=== PATIENT | female | born 1990 | race Hispanic/Latino ===

== ENCOUNTER 2020-01-14 06:40 | Day surgery (SDC) | payer OTHER ==
[~2020-01-14] VITALS: Ht 162.6 cm; Wt 93.9 kg
[~2020-01-14 06:40] MED LIST: ASPIR 8181 MG PO; DOXYCYCLINE HY100 MG PO; GLUCOPHAGE500 MG PO; KEFLEX500 MG PO; LABETALOL HCL100 MG PO; MICROGESTIN FE1 EAC1 PO; PRENATAL MULTI1 EAC3 PO; ULTRAM50 MG PO
[2020-01-14] MEDS ORDERED: HYDROCODON-ACE1 EA10 PO (08:06)
--- NOTE | 2020-01-14 09:21 | NUR ---
01/14/20 0921 Yue,Jennifer 0805 PT ARRIVED TO PACU ON RA AND TALKING TO RN. VSS. 0817 PT SITTING IN HIGH FOLWERS AND SIPPING WATER. PT DENIES NAUSEA AND REPORTS PAIN 02/08 0823 ORAL PAIN MEDICATION GIVEN PER EMAR. 0855 PT GETTING DRESSED AND RIDE CALLED. PT RPEORTS PAIN IS 7/10 AND "HURTING." REPAIRER [employer] CALLED AND NEW ORDER RECEIVED. 0856 IV PRABHAKAR MEDICATION GIVEN PER EMAR. 0905 PLAN TO RETURN PT TO DS TO MONITOR. REPORT TO DS RN. PT REPORTS PAIN IS BETTER /10. VSS.
--- NOTE | 2020-01-16 08:20 | OR ---
[facility] [address] [place], [place] [address] Signed DATE OF OPERATION: 01/14/2020 SURGEON: Valentin Joya MD PREOPERATIVE DIAGNOSIS: Right carpal tunnel syndrome. POSTOPERATIVE DIAGNOSIS: Right carpal tunnel syndrome. PROCEDURE PERFORMED: Right carpal tunnel release. ANESTHESIA: [place] block. TOURNIQUET TIME: 17 minutes. DRIVER SERVICE TECHNICIAN: None. BRIEF HISTORY: Aletha is a 29-year-old female with symptoms consistent with carpal tunnel and nerve conduction studies consistent with severe carpal tunnel. Risks and benefits of operative treatment discussed with her and she elected to proceed. DESCRIPTION OF PROCEDURE: Once consent was obtained, she was taken to the operating room after adequate anesthesia. She was placed on operating room table and all downside pressure points were well padded. The right arm was prepped and draped in a standard sterile fashion. The J[place] block was a little slow setting up, so we injected incision and carpal tunnel using 0.25% plain Marcaine and a 1.5 cm incision was made in the distal wrist crease. This was carried through skin and subcutaneous tissue. Palmaris longus was identified, retracted and protected. The transverse carpal ligament was then dissected free of overlying soft tissue under loupe magnification and was released proximally a 1.5 cm and distally to its distal extent. This was palpated using the [place] and again under direct loupe magnification, it was found to be completely released with no nerve damage. The wound was copiously irrigated with normal saline, closed with 3-0 nylon and dressed with Electronically Signed By: VALENTIN JOYA MD 01/16/20 0820 PATIENT NAME: ALETHA VEGA OPERATIVE REPORT DATE OF : 88 REPORT #: [id number] PHYSICIAN: VALENTIN JOYA MD PCP: MISSY CASTELLANOS MD REPORT IS CONFIDENTIAL AND NOT TO BE RELEASED WITHOUT AUTHORIZATION [facility] [address] [facility] [place] [place] [address] Signed bacitracin, Adaptic, 4 x 8s, and gauze. She tolerated that well. Valentin Joya MD BA/MODL /[id number] Copies: ~ Electronically Signed By: VALENTIN JOYA MD 01/16/20 0820 PATIENT NAME: ALETHA VEGA OPERATIVE REPORT DATE OF : 88 REPORT #: [id number] PHYSICIAN: VALENTIN JOYA MD PCP: MISSY CASTELLANOS MD REPORT IS CONFIDENTIAL AND NOT TO BE RELEASED WITHOUT AUTHORIZATION
== END 2020-01-14 09:12 | disposition home or self-care (01) ==
LOC: OPS 06:40 → DS 06:40
PROVIDERS: Specialist
PROC: 01N50ZZ Release Median Nerve, Open Approach (ICD-10-PCS; principal; 2020-01-14 08:15)
DX: G56.03 Carpal tunnel syndrome, bilateral upper limbs (principal); Z79.899 Other long term (current) drug therapy; Z79.82 Long term (current) use of aspirin; Z79.84 Long term (current) use of oral hypoglycemic drugs
CPT/HCPCS: J0690; J1885; J2250; J2704; J7121

== ENCOUNTER 2020-02-25 05:40 | Day surgery (SDC) | payer OTHER ==
[~2020-02-25] VITALS: Ht 162.6 cm; Wt 93.4 kg
[~2020-02-25 05:40] MED LIST changes: +HYDROCODON-ACE1 EA10 PO
[2020-02-25] MEDS ORDERED: HYDROCODON-ACE1 EA10 PO (07:25)
--- NOTE | 2020-02-25 07:35 | NUR ---
02/25/20 0734 Sybil Antonio 0725- PT TO PACU IN SF POSITION EYES CLOSED. RESPONDS TO VERBAL STIMULI BUT QUICKLY FALLS BACK TO SLEEP WITH ORAL AIRWAY IN PLACE. BREATHING EASY AND UNLABORED. SPO2 >95% ON 12 L O2 VIA MASK. 0730- PT CONTINUES TO SLEEP WITH EYES CLOSED. BREATHING EASY AND UNLABORED. SPO2 >95% ON 6 L O2 VIA MASK. 0734- PT OPENS EYES AND FOLLOWS COMMANDS. ORAL AIRWAY REMOVED AND O2 TITRATED DOWN TO RA. BREATHING EASY AND UNLABORED. SPO2 >90%. DENIES PAIN AND NAUSEA.
--- NOTE | 2020-02-25 08:41 | NUR ---
PATIENT TO BACK TO ROOM FROM PACU. VERBAL REPORT FROM CHET BROTHERS. REPORTS PATIENT READY TO GO, JUST NEEDS TO WAKE UP A LITTLE MORE. PATIENT APPEARS TO BE AWAKE ON AND OFF, AND CONVERSING WITH . PROVIDED ICE WATER. PATIENT STATES " I AM READY TO GO HOME NOW". WILL LET PATIENT WAKE UP A LITTLE MORE, BEFORE GETTING DRESSED AND PROVIDING DISCHARGE EDUCATION REVIEW AGAIN.
--- NOTE | 2020-02-25 08:47 | NUR ---
PT TAKEN TO OR-FAMILY IN RM. RELAXED, SEEMED COMFORTABLE AND GAVE ENCOURAGEMENT
--- NOTE | 2020-02-25 09:12 | OR ---
[facility] [address] [place], [place] [address] Signed DATE OF OPERATION: 02/25/2020 SURGEON: Valentin Joya MD PREOPERATIVE DIAGNOSIS: Left carpal tunnel syndrome. POSTOPERATIVE DIAGNOSIS: Left carpal tunnel syndrome. PROCEDURE PERFORMED: Left carpal tunnel release. VASC TECH: None. ANESTHESIA: [place] block. TOURNIQUET TIME: 20 minutes. BRIEF HISTORY: Aletha is a 30-year-old female with bilateral carpal tunnel. She had undergone successful right release and wished to proceed with left. Risks and benefits of operative treatment discussed with her and she elected to proceed. DESCRIPTION OF PROCEDURE: Once consent was obtained, she was taken to the operating room. After adequate anesthesia, she was placed on the operating cart and hand table was brought in. The arm was then prepped and draped in a standard sterile fashion. A 1.5 cm incision was made in the distal wrist crease, carried through the skin and subcutaneous tissue. Palmaris longus was identified, retracted and protected. The transverse carpal ligament was identified under loupe magnification and was dissected free of overlying soft tissue distally and proximally. It was then transected approximately a cm and distally under direct loupe magnification, it was released to the distal extent. This was palpated using a [place] and found to be completely released. The wound was copiously irrigated with antibiotic solution. The wound was infiltrated with 8 mL of 0.25% plain Marcaine. The wound was closed with 3-0 nylon and dressed with bacitracin, Adaptic, 4 x 8s, and gauze. She tolerated the procedure well. All sponge, needle, and instrument counts Electronically Signed By: VALENTIN JOYA MD 02/25/20 0912 PATIENT NAME: ALETHA VEGA OPERATIVE REPORT DATE OF : 88 REPORT #: [id number] PHYSICIAN: VALENTIN JOYA MD PCP: MISSY CASTELLANOS MD REPORT IS CONFIDENTIAL AND NOT TO BE RELEASED WITHOUT AUTHORIZATION [address] [place], [place] [address] Signed were correct. Valentin Joya MD BA/MODL /[id number] Copies: ~ Electronically Signed By: VALENTIN JOYA MD 02/25/20 0912 PATIENT NAME: ALETHA VEGA OPERATIVE REPORT DATE OF : 88 REPORT #: [id number] PHYSICIAN: VALENTIN JOYA MD PCP: MISSY CASTELLANOS MD REPORT IS CONFIDENTIAL AND NOT TO BE RELEASED WITHOUT AUTHORIZATION
== END 2020-02-25 09:15 | disposition home or self-care (01) ==
LOC: DS 05:40
PROVIDERS: Specialist
PROC: 01N50ZZ Release Median Nerve, Open Approach (ICD-10-PCS; principal; 2020-02-25 06:45)
DX: G56.02 Carpal tunnel syndrome, left upper limb (principal); I10 Essential (primary) hypertension; E66.01 Morbid (severe) obesity due to excess calories; Z68.35 Body mass index [BMI] 35.0-35.9, adult; Z98.890 Other specified postprocedural states; Z79.899 Other long term (current) drug therapy; Z79.82 Long term (current) use of aspirin; Z79.84 Long term (current) use of oral hypoglycemic drugs
CPT/HCPCS: J0690; J1100; J1885; J2250; J2405; J2704; J2765; J3010; J7121

== ENCOUNTER 2023-05-13 22:30 | Inpatient (IN) | payer OTHER ==
[~2023-05-13 22:30] MED LIST changes: +ESTRADIOL2 MG PO; +FOLIC ACID1 MG PO; +OMEGA 3 1,0001 EACH PO; +RELION NOV100 UNIT/1 SUB-Q; +[UNRECOGNIZED DRUG - OTHER] PO
[2023-05-14 00:04] LABS: CREATININE, RANDOM URINE 24.05 mg/dL (NOT ESTABLISHED); PROTEIN/CREATININE RATIO 0.49 mg/mg (0.010-0.107)
[2023-05-14 00:14] LABS: HEMATOCRIT 34.4 % (35.0-50.0); HEMOGLOBIN 11.6 g/dL (12.0-18.0); MCH 30.5 (27-36); MCHC 33.6 g/dl (30-36); MCV 90.6 fl (81-99); RBC 3.8 M/ul (4.3-5.7); RDW 14.2 (10.5-15.0)
[2023-05-14 00:28] LABS: CREATININE, SERUM 0.75 mg/dL (0.55-1.02)
[2023-05-14 03:28] LABS: INFLUENZA B NAA NEGATIVE (NEGATIVE); RESPIRATORY SYNCYTIAL VIR NAA NEGATIVE (NEGATIVE)
[2023-05-14 03:59] VITALS: BP 176/105
[2023-05-14 04:47] LABS: ABO O; ANTIBODY SCREEN NEGATIVE; RH POSITIVE
== END 2023-05-14 14:14 | disposition short-term general hospital (02) | DRG 832 ==
LOC: FBCO 22:30 → FBC 22:31 → FBCO 05-14 04:38 → FBC 05-14 04:38
PROVIDERS: ADMIT Obstetrics & Gynecology; ATTEND Obstetrics & Gynecology
DX: O11.3 Pre-existing hypertension with pre-eclampsia, third trimester (principal); O24.113 Pre-existing type 2 diabetes mellitus, in pregnancy, third trimester; O10.913 Unspecified pre-existing hypertension complicating pregnancy, third trimester; Z3A.34 34 weeks gestation of pregnancy; Z79.4 Long term (current) use of insulin; Z79.899 Other long term (current) drug therapy; Z20.822 Contact with and (suspected) exposure to COVID-19
CPT/HCPCS: 36415; 59025; 82565; 82570; 84156; 84450; 84520; 84550; 85027; 86850; 86900; 86901; 87502; 87653; C9803; G0463; J0360; J3475; J7121; U0002

== ENCOUNTER 2024-07-15 06:00 | Day surgery (SDC) | payer OTHER ==
[~2024-07-15] VITALS: Ht 162.6 cm; Wt 95.5 kg
[~2024-07-15 06:00] MED LIST changes: +LACTATED RINGER'S 1,000 ML IV SCH
[2024-07-15 06:15] VITALS: BP 131/88
[2024-07-15] MEDS ORDERED: HUMULIN N100 UNIT/1 SUB-Q (06:30)
[2024-07-15 06:33] LABS: HEMATOCRIT 39.1 % (35.0-50.0); HEMOGLOBIN 13.5 g/dL (12.0-18.0); MCH 30.2 (27-36); MCHC 34.4 g/dl (30-36); MCV 87.7 fl (81-99); RBC 4.46 M/ul (4.3-5.7); RDW 13.8 (10.5-15.0)
--- NOTE | 2024-07-15 06:44 | NUR ---
Heart Tones: 151
[2024-07-15] MEDS ORDERED: LIDOCAINE HCL 1% 5 ML SDV INJ ONE (07:00)
[2024-07-15] MEDS ORDERED: IBLOOD GLUCOSE TEST STRIP 1 EA TEST VI PRN (07:00)
[2024-07-15] MEDS ORDERED: FAMOTIDINE 20 MG/ 2 ML VIAL IV SCH (07:00)
[2024-07-15] MEDS ORDERED: propofoL 200 MG/20 ML VIAL ONE (07:01)
[2024-07-15] MEDS ORDERED: LIDOCAINE HCL 2% 5 ML SDV ONE (07:01)
--- NOTE | 2024-07-15 07:20 | NUR ---
PT GONE FOR PROCEDURE. PROVIDED PRAYER.
[2024-07-15] MEDS ORDERED: NALOXONE HCL 0.4 MG SYR IV PRN (07:45)
[2024-07-15] MEDS ORDERED: MAGNESIUM HYDROXIDE/AL HYDROX 30 ML CUP PO PRN (07:45)
[2024-07-15] MEDS ORDERED: PROCHLORPERAZINE EDISYLATE 10 MG/2 ML VIAL IV PRN (07:45)
[2024-07-15] MEDS ORDERED: FAMOTIDINE 20 MG TAB PO PRN (07:45)
[2024-07-15] MEDS ORDERED: METOCLOPRAMIDE HCL 10 MG/2 ML SDV IV PRN (07:45)
[2024-07-15] MEDS ORDERED: LACTATED RINGER'S 1,000 ML IV SCH (07:45)
[2024-07-15] MEDS ORDERED: ondansetron HCL 4 MG/2 ML VIAL IV PRN (07:45)
[2024-07-15] MEDS ORDERED: HYDROCODONE/ACETA 5/325 TAB PO PRN (07:45)
[2024-07-15] MEDS ORDERED: ondansetron HCL 4 MG TAB PO PRN (07:45)
--- NOTE | 2024-07-15 08:05 | NUR ---
07/15/24 0805 ACE KAY 0730 PT ARRIVED TO PACU VIA STREACHER. PT BREATHING EQUAL AND UNLABROED, PT HAS NATURAL AIRWAY. PT TALKING PT ROLLS INTO PACU. PT HAS 6L OF OYXGEN VIA MASK. PT REPORTS NO PAIN OR NAUSEA AT THIS TIME. ALL MONITORS ATTACHED. REPORT TAKEN FROM TRISTIN TURNING SANDER OPERATOR. PT SPINAL LEVEL AT T5. 0753 HEART TONES 140. BLOOD GLUCOSE 79. PT REPORTING NO PAIN OR NAUSEA. 0802 PT REMOVED FROM OXYGEN DUE TO PT OXYGEN SAT AT 100% ON 6L. PT OXYGEN SAT STAYING ABOVE 96% ON RA.
[2024-07-15 08:24] VITALS: BP 129/85
--- NOTE | 2024-07-15 08:30 | NUR ---
Patient returns to room 4 from PACU via bed. Patient is awake and talking upon arrival. Report taken from ZEV Hoover. Patient had a spinal and is at about abdomen level. patient unable to life legs. Patient denies any nausea or pain at this time. water provided to patient. Patient was medicated with Indomethacin at this time per Dr. Verdugo's request. heart tones assessed and heart rate is 152. Maternal vital signs obtained and WDL. Patient denies any needs at this time. bed is in lowest position and call light within reach.
[2024-07-15] MEDS ORDERED: INDOMETHACIN 50 MG CAP PO ONE (09:00)
--- NOTE | 2024-07-15 09:25 | NUR ---
Hourly rounding on patient. Patient is denying any nausea. reports some crampy pain, but nothing significant. Spinal is almost resolved, she feels sharpness to the ankle and above. vital signs obtained. She has drank water. Will provide crackers. Patient states that she needs to urinate. bedside commode brought to room. she was able to void 600ml. patient was allowed to get dressed at this time with the assistance of her .
[2024-07-15 09:27] VITALS: BP 155/92
--- NOTE | 2024-07-15 09:50 | NUR ---
patient is dressed. spinal has resolved and she states that she feels well and steady on her feet. heart tones assessed and heart rate is 150. Discharge instructions reviewed in detail with patient and her . She had the question of if she has weight restrictions. There was no note in any discharge information by Dr. Verdugo about weight restrictions, but I let her know that I was not certain. I advised to not fish bait picker her 14 month old daughter to be safe and follow up with Dr. Verdugo about her question on Friday at her appointment. IV removed from left hand. Patient discharged via wheelchair where her is to take her home.
--- NOTE | 2024-07-16 16:27 | OR ---
[facility] [address] [place], [place] [address] Signed DATE OF OPERATION: 07/15/2024 SURGEON: Carol Verdugo MD PREOPERATIVE DIAGNOSIS: Sixteen week , incompetent cervix. POSTOPERATIVE DIAGNOSIS: Sixteen week , incompetent cervix. PROCEDURE: Gastelum cerclage. ANESTHESIA: Spinal with IV sedation. ESTIMATED BLOOD LOSS: Minimal. DRAINS: None. INDICATIONS AND FINDINGS: The patient is a 34-year-old female 3, para 0-2-0-1, who was admitted at 16 weeks for cerclage. She has had a prior loss at 21 weeks. She did have a cerclage with her last , though she was delivered early because of severe preeclampsia. At the time of surgery, her cervix was closed. It did appear to be slightly shortened. PROCEDURE IN DETAIL: The patient was prepped and draped in the dorsal lithotomy position. A weighted speculum was placed and the anterior lip of the cervix was visualized and grasped with a ring forcep. A 5 mm Mersilene band was then placed in a pursestring manner starting at 12 o'clock and was taken circumferentially around the cervix and tied at approximately 1 o'clock. Care was to keep as much length as possible. Appropriate depth of the suture placement was also done. After the suture was tied, the ends of the Mersilene band the cervix to be closed. Following placement of the suture, the ends of the Mersilene were sutured together with 0 silk. The instruments removed. There was minimal bleeding. The patient was taken to the recovery room in good condition. All sponge and needle counts were correct. Electronically Signed By: CAROL VERDUGO MD 07/16/24 1627 PATIENT NAME: ALETHA KAHN OPERATIVE REPORT DATE OF : 88 REPORT #: [id number] PHYSICIAN: CAROL VERDUGO MD PCP: NO PRIMARY CARE PHYSICIAN REPORT IS CONFIDENTIAL AND NOT TO BE RELEASED WITHOUT AUTHORIZATION [address] [address] Signed Carol Verdugo MD PJW/MODL /[id number] Copies: ~ Electronically Signed By: CAROL VERDUGO MD 07/16/24 1627 PATIENT NAME: ALETHA KAHN OPERATIVE REPORT DATE OF : 88 REPORT #: [id number] PHYSICIAN: CAROL VERDUGO MD PCP: NO PRIMARY CARE PHYSICIAN REPORT IS CONFIDENTIAL AND NOT TO BE RELEASED WITHOUT AUTHORIZATION
== END 2024-07-15 09:55 | disposition home or self-care (01) ==
LOC: DS 06:00
PROVIDERS: ATTEND Obstetrics & Gynecology
PROC: 0UVC7ZZ Restriction of Cervix, Via Natural or Artificial Opening (ICD-10-PCS; principal; 2024-07-15 07:30)
DX: O34.32 Maternal care for cervical incompetence, second trimester (principal); O10.912 Unspecified pre-existing hypertension complicating pregnancy, second trimester; O99.212 Obesity complicating pregnancy, second trimester; O24.312 Unspecified pre-existing diabetes mellitus in pregnancy, second trimester; Z3A.16 16 weeks gestation of pregnancy; Z79.82 Long term (current) use of aspirin; Z79.4 Long term (current) use of insulin; Z79.84 Long term (current) use of oral hypoglycemic drugs; Z79.899 Other long term (current) drug therapy
CPT/HCPCS: 36415; 85027; J2003; J2704; J7121

== ENCOUNTER 2024-08-19 09:17 | Emergency (ER) | payer OTHER ==
[~2024-08-19] VITALS: Ht 162.6 cm; Wt 97.6 kg
[~2024-08-19 09:17] MED LIST changes: +HUMULIN N100 UNIT/1 SUB-Q; -LACTATED RINGER'S 1,000 ML IV SCH
[2024-08-19] MEDS ORDERED: MAGNESIUM SULFATE 100 ML IV ONE (09:32)
[2024-08-19 09:41] LABS: EOSINOPHILS 1.3 % (0-6); HEMATOCRIT 38.5 % (35.0-50.0); HEMOGLOBIN 13.3 g/dL (12.0-18.0); LYMPHOCYTES 24.8 % (24-44); MCH 30.6 (27-36); MCHC 34.4 g/dl (30-36); MCV 88.8 fl (81-99); MONOCYTES 6.9 % (0-12); PLATELET COUNT 235 K/uL (140-440); RBC 4.34 M/ul (4.3-5.7); RDW 14.1 (10.5-15.0)
[2024-08-19] MEDS ORDERED: LACTATED RINGER'S 1,000 ML IV SCH (09:45)
[2024-08-19] MEDS ORDERED: MAGNESIUM SULFATE 1 GM/2 ML VIAL IV ONE (09:45)
[2024-08-19] MEDS ORDERED: CALCIUM GLUCONATE 1,000 MG/10 ML VIAL IV PRN (09:45)
[2024-08-19] MEDS ORDERED: MAGNESIUM SULFATE 500 ML IV SCH (09:45)
[2024-08-19] MEDS ORDERED: hydrALAZINE HCL 20 MG/ML VIAL IV ONE (09:45)
[2024-08-19 09:49] LABS: PROTIME 12.8 Sec (11.2-14.2)
[2024-08-19 09:51] LABS: PARTIAL THROMBOPLASTIN TIME 31.2 Sec (22.9-41.3)
[2024-08-19 09:53] LABS: ALBUMIN 3.1 g/dL (3.4-5.0); ALBUMIN/GLOBULIN RATIO 0.79 (1.1-2.4); ANION GAP 13.8 (7-21); BILIRUBIN, DIRECT 0.1 mg/dL (0.0-0.2); BILIRUBIN, INDIRECT 0.2 (0.1-0.7); BILIRUBIN, TOTAL 0.3 ng/dL (0.2-1.0); BUN/CREATININE RATIO 12.85 (6.0-28.6); CALCIUM 8.7 mg/dL (8.5-10.1); CREATININE, SERUM 0.7 mg/dL (0.55-1.02); MAGNESIUM 1.6 mg/dL (1.8-2.4); POTASSIUM 3.8 mmol/L (3.5-5.1)
[2024-08-19 09:54] LABS: BILIRUBIN, URINE NEGATIVE (negative); BLOOD/HGB, URINE NEGATIVE (Negative); KETONE, URINE NEGATIVE (Negative); LEUK ESTERASE, URINE NEGATIVE (negative); NITRITE, URINE NEGATIVE (negative); PH, URINE 6.5 (5-7)
[2024-08-19 10:10] LABS: CREATININE, RANDOM URINE 57.78 mg/dL (NOT ESTABLISHED); PROTEIN/CREATININE RATIO 0.19 mg/mg (0.010-0.107)
[2024-08-19 11:35] VITALS: BP 109/78
== END 2024-08-19 11:35 | disposition other institution, planned readmission (95) ==
LOC: ED 09:17
PROVIDERS: Emergency Medicine
DX: O14.92 Unspecified pre-eclampsia, second trimester (principal); O24.912 Unspecified diabetes mellitus in pregnancy, second trimester; O16.2 Unspecified maternal hypertension, second trimester; Z3A.21 21 weeks gestation of pregnancy; Z96.0 Presence of urogenital implants; Z79.84 Long term (current) use of oral hypoglycemic drugs; Z79.82 Long term (current) use of aspirin; Z79.899 Other long term (current) drug therapy
CPT/HCPCS: 36415; 80053; 81001; 81003; 82247; 82248; 82570; 83615; 83735; 84156; 84550; 85025; 85384; 85610; 85730; 96374; 96375; 99284-25; J0360; J3475

== ENCOUNTER 2024-08-19 11:46 | Observation (INO) | payer OTHER ==
[2024-08-19] MEDS ORDERED: ACETAMINOPHEN 500 MG TAB PO ONE (13:00)
[2024-08-19 14:28] VITALS: BP 144/91
[2024-08-19] MEDS ORDERED: LABETALOL HCL 100 MG TAB PO ONE (14:30)
== END 2024-08-19 16:51 | disposition home or self-care (01) ==
LOC: FBCO 11:46 → FBC 11:53
PROVIDERS: ADMIT Advanced Practice Midwife; ATTEND Advanced Practice Midwife
DX: O99.891 Other specified diseases and conditions complicating pregnancy (principal); R51.9 Headache, unspecified; O16.2 Unspecified maternal hypertension, second trimester; O24.912 Unspecified diabetes mellitus in pregnancy, second trimester; O34.32 Maternal care for cervical incompetence, second trimester; Z3A.22 22 weeks gestation of pregnancy; Z79.4 Long term (current) use of insulin; Z79.84 Long term (current) use of oral hypoglycemic drugs; Z79.82 Long term (current) use of aspirin
CPT/HCPCS: 84550; A9270

== ENCOUNTER 2024-10-10 22:12 | Observation (INO) | payer OTHER ==
[~2024-10-10] VITALS: Ht 162.6 cm; Wt 97.1 kg
[2024-10-10 22:43] LABS: CREATININE, RANDOM URINE 116.18 mg/dL (NOT ESTABLISHED); PROTEIN/CREATININE RATIO 0.12 mg/mg (0.010-0.107)
[2024-10-10 22:58] LABS: HEMATOCRIT 35.9 % (35.0-50.0); HEMOGLOBIN 12.5 g/dL (12.0-18.0); MCH 31.2 (27-36); MCHC 34.9 g/dl (30-36); MCV 89.6 fl (81-99); RBC 4.01 M/ul (4.3-5.7); RDW 14.2 (10.5-15.0)
[2024-10-10] MEDS ORDERED: LABETALOL HCL 100 MG/20 ML MDV ONE (22:59)
[2024-10-10 23:13] LABS: ALBUMIN 2.9 g/dL (3.4-5.0); ALBUMIN/GLOBULIN RATIO 0.73 (1.1-2.4); ANION GAP 14.7 (7-21); BILIRUBIN, TOTAL 0.3 ng/dL (0.2-1.0); BUN/CREATININE RATIO 12.14 (6.0-28.6); CALCIUM 9.5 mg/dL (8.5-10.1); CREATININE, SERUM 1.07 mg/dL (0.55-1.02); POTASSIUM 3.7 mmol/L (3.5-5.1); PROTEIN, TOTAL 6.9 g/dL (6.4-8.2)
[2024-10-10] MEDS ORDERED: LACTATED RINGER'S 1,000 ML IV SCH (23:15)
[2024-10-10] MEDS ORDERED: hydrALAZINE HCL 20 MG/ML VIAL IV PRN (23:15)
[2024-10-10] MEDS ORDERED: CALCIUM GLUCONATE 1,000 MG/10 ML VIAL IV PRN (23:15)
[2024-10-10] MEDS ORDERED: LABETALOL HCL 100 MG/20 ML MDV IV PRN ×3 (23:15)
[2024-10-10] MEDS ORDERED: MAGNESIUM SULFATE 500 ML IV SCH (23:15)
[2024-10-10 23:32] LABS: ABO O; ANTIBODY SCREEN NEGATIVE; RH POSITIVE
[2024-10-11 06:15] LABS: ALBUMIN 2.6 g/dL (3.4-5.0); ALBUMIN/GLOBULIN RATIO 0.72 (1.1-2.4); ANION GAP 12.5 (7-21); BILIRUBIN, TOTAL 0.2 ng/dL (0.2-1.0); BUN/CREATININE RATIO 13.84 (6.0-28.6); CALCIUM 7.8 mg/dL (8.5-10.1); CREATININE, SERUM 0.65 mg/dL (0.55-1.02); MAGNESIUM 3.9 mg/dL (1.8-2.4); POTASSIUM 3.5 mmol/L (3.5-5.1); PROTEIN, TOTAL 6.2 g/dL (6.4-8.2)
[2024-10-11] MEDS ORDERED: metFORMIN HCL 500 MG TAB PO SCH (08:00)
[2024-10-11] MEDS ORDERED: ASPIRIN 81 MG CHEW PO SCH (08:00)
[2024-10-11] MEDS ORDERED: INSULIN NPH HUMAN ISOPHANE 100 UNIT/ML ML SUB-Q SCH ×2 (08:00→21:00)
[2024-10-11] MEDS ORDERED: LABETALOL HCL 200 MG TAB PO SCH (09:00)
[2024-10-12 08:49] VITALS: BP 145/83
== END 2024-10-12 10:20 | disposition home or self-care (01) ==
LOC: FBCO 22:12 → FBC 22:13
PROVIDERS: ADMIT Obstetrics & Gynecology; ATTEND Obstetrics & Gynecology
DX: O10.913 Unspecified pre-existing hypertension complicating pregnancy, third trimester (principal); I16.9 Hypertensive crisis, unspecified; O24.113 Pre-existing type 2 diabetes mellitus, in pregnancy, third trimester; O99.213 Obesity complicating pregnancy, third trimester; Z3A.31 31 weeks gestation of pregnancy; Z79.4 Long term (current) use of insulin; Z79.899 Other long term (current) drug therapy
CPT/HCPCS: 36415; 76815; 80053; 82565; 82570; 83615; 83735; 84156; 84550; 85027; 86850; 86900; 86901; A9270; G0378; J1815; J3475; J7121

== ENCOUNTER 2025-08-31 05:50 | Day surgery (SDC) | payer OTHER ==
[~2025-08-31] VITALS: Ht 162.6 cm; Wt 99.0 kg
[~2025-08-31 05:50] MED LIST changes: +LACTATED RINGER'S 1,000 ML IV SCH
[2025-08-31 06:05] VITALS: BP 148/89
[2025-08-31 06:36] LABS: BASOPHILS 0.5 % (0.1-1.2); EOSINOPHILS 0.9 % (0.7-5.8); LYMPHOCYTES 30.4 % (19.3-51.7); MCH 29.6 PG (25.6-32.2); MCHC 34.2 g/dL (32.2-35.5); MCV 86.6 fL (79.4-94.8); MONOCYTES 6.8 % (4.7-12.5); NEUTROPHILS 61.2 % (34.0-71.1); RBC 4.39 M/uL (3.93-5.22)
[2025-08-31] MEDS ORDERED: LIDOCAINE HCL 1% 5 ML SDV INJ ONE (07:00)
[2025-08-31] MEDS ORDERED: IBLOOD GLUCOSE TEST STRIP 1 EA TEST VI PRN (07:00)
[2025-08-31] MEDS ORDERED: LIDOCAINE HCL 2% 5 ML SDV ONE ×2 (07:12→07:13)
[2025-08-31 07:33] LABS: ABO O; ANTIBODY SCREEN NEGATIVE; RH POSITIVE
--- NOTE | 2025-08-31 08:23 | NUR ---
08/31/25 0823 Vanessa Uriarte 0818-PATIENT ARRIVED TO PACU ON RA 95% RR EVEN REACTIVE TO VERBAL STIMULI OPENING EYES DENIES PAIN OR NAUSEA. SR HR 80'S IVF INFUSING. DR SMITH AT BEDSIDE DOING ULTRASOUND. CLIF PAD IN PLACE NO DRAINAGE NOTED.
[2025-08-31] MEDS ORDERED: MAGNESIUM HYDROXIDE/AL HYDROX 30 ML CUP PO PRN (08:30)
[2025-08-31] MEDS ORDERED: FAMOTIDINE 20 MG/ 2 ML VIAL IV PRN (08:30)
[2025-08-31] MEDS ORDERED: NALOXONE HCL 0.4 MG SYR IV PRN (08:30)
[2025-08-31] MEDS ORDERED: PROCHLORPERAZINE EDISYLATE 10 MG/2 ML VIAL IV PRN (08:30)
[2025-08-31] MEDS ORDERED: SIMETHICONE 80 MG CHEW PO PRN (08:30)
[2025-08-31 08:59] VITALS: BP 130/80
[2025-08-31] MEDS ORDERED: SIMETHICONE 80 MG CHEW PO SCH (09:00)
--- NOTE | 2025-08-31 09:05 | NUR ---
0855- PT RESTING IN STRETCHER. WARM AIR PROVIDED. VITAL SIGNS OBTAINED. BED IS LOCKED IN THE LOWEST POSITION WITH CALL LIGHT IN REACH. CLIF PAD IN PLACE IS CDI. SPINAL CHECKED. LR IN FUSING. PT DENIES PAIN AND NAUSEA. DISCHARGE CRITERIA DISCUSSED AND PT IS UNDERSTANDING. ALL QUESTIONS AND CONCERNS ANSWERES. WATER PROVIDED PER PT REQUEST.
--- NOTE | 2025-08-31 10:03 | NUR ---
0953-PT STATES "I CAN WIGGLE MY TOES" AND ASKS TO USE THE RESTROOM. PT MOVES SELF TO BEDSIDE. DENIES NAUSEA OR DIZZINESS. PT AMBULATES WITH 1 RN ASSIST TO RESTROOM. PERIPAD CLEAN AND DRY. 0955-PT VOIDS 600ML OF YELLOW URINE. 0959-PT AMBULATES BACK TO BED AND IS SITTING AT THE SIDE OF BED. PT STATES SHE FELT THE URGE TO VOID BUT DID NOT KNOW SHE VOIDED UNTIL SHE HEARD THE URINE HIT THE WATER. 1007-PHONE CALL TO DR SMITH WITH UPDATE ON PT. VO TO BLADDER SCAN PT AND MAY DISCHARGE IF LESS THAN 100ML IN BLADDER, IF OVER 100ML IN BLADDER PT WILL NEED TO VOID AGAIN.
[2025-08-31 10:15] VITALS: BP 123/79
--- NOTE | 2025-08-31 10:18 | NUR ---
1010- PT IS RESTING IN STRETCHER. BLADDER SCAN COMPLETED, PER DR. SMITH. 50ML PRESENT IN BLADDER. PT REPORTS SOME MILD CRAMPING AND RATES IT A 3-4/10 THAT IS TOLERABLE. PT WAS ABLE TO SIP ON WATER AND EAT A JELLO. PT DENIES NAUSEA. PT IS SALINE LOCKED. PT WANTING TO GET DRESSED AT THIS TIME WITH HUSBANDS ASSISTANCE.
--- NOTE | 2025-08-31 10:47 | NUR ---
1041- PT IS DRESSED. IV REMOVED. DISCHARGE PAPERWORK AND EDUCATION GONE OVER. ALL QUESTIONS AND CONCERNS ANSWERED. PT IS ABLE TO AMBULATE TO HOSPITAL WHEELCHAIR WITH NO ISSUES. PT HAS ALL BELONGINGS. PT IS DC'D FROM DAY SURGERY AT THIS TIME AND IS ABLE TO TRANSFER TO FAMILY VEHICLE WITH NO ISSUES.
== END 2025-08-31 10:41 | disposition home or self-care (01) ==
LOC: DS 05:50
PROVIDERS: Obstetrics & Gynecology; ATTEND Obstetrics & Gynecology
PROC: 0UVC7ZZ Restriction of Cervix, Via Natural or Artificial Opening (ICD-10-PCS; principal; 2025-08-31 07:30)
DX: O34.32 Maternal care for cervical incompetence, second trimester (principal); O10.912 Unspecified pre-existing hypertension complicating pregnancy, second trimester; O24.112 Pre-existing type 2 diabetes mellitus, in pregnancy, second trimester; O09.522 Supervision of elderly multigravida, second trimester; O99.212 Obesity complicating pregnancy, second trimester; E66.9 Obesity, unspecified; Z79.4 Long term (current) use of insulin; Z79.899 Other long term (current) drug therapy; Z3A.14 14 weeks gestation of pregnancy
CPT/HCPCS: 00948; 36415; 51798; 85025; 86850; 86900; 86901; J2003; J2704; J7121